=== PATIENT | female | born 1965 ===

== ENCOUNTER 2021-04-19 17:22 | Emergency (ER) | payer OTHER ==
[~2021-04-19] VITALS: Ht 154.9 cm; Wt 65.8 kg
[2021-04-19] MEDS ORDERED: REGLAN5 MG/5 ML PO (17:55)
[2021-04-19] MEDS ORDERED: MACROBID 100 M100 MG PO (20:16)
== END 2021-04-19 20:20 | disposition home or self-care (01) ==
LOC: ER 17:22
DX: R11.11 Vomiting without nausea (principal); N39.0 Urinary tract infection, site not specified

== ENCOUNTER 2021-08-30 10:36 | Emergency (ER) | payer OTHER ==
[~2021-08-30] VITALS: Ht 157.5 cm; Wt 70.3 kg
[~2021-08-30 10:36] MED LIST: MACROBID 100 M100 MG PO; REGLAN5 MG/5 ML PO
== END 2021-08-30 17:45 | disposition home or self-care (01) ==
LOC: ER 10:36
DX: R10.30 Lower abdominal pain, unspecified (principal)

== ENCOUNTER 2021-11-26 08:17 | Emergency (ER) | payer OTHER ==
[~2021-11-26] VITALS: Ht 157.5 cm; Wt 69.9 kg
[2021-11-26] MEDS ORDERED: MOTRIN IB200 MG (08:32)
[2021-11-26] MEDS ORDERED: CLEOCIN HCL300 MG PO (08:32)
[2021-11-26] MEDS ORDERED: AMOX-CLAV 875-1 EACH PO (11:45)
[2021-11-26] MEDS ORDERED: KETO10TA2 PO (11:45)
== END 2021-11-26 11:52 | disposition home or self-care (01) ==
LOC: ER 08:17
DX: K04.7 Periapical abscess without sinus (principal); R22.0 Localized swelling, mass and lump, head